=== PATIENT | female | born 1980 | race Caucasian/White ===

== ENCOUNTER 2021-01-29 15:50 | Emergency (ER) | payer OTHER ==
[2021-01-29 16:25] VITALS: TEMP 97.8; BMI 33.9
[2021-01-29 16:26] VITALS: BP 123/84; PULSE 63
[2021-01-29 16:33] LABS: BASO % 2.6 % (0-2.0); EOS % 2.6 % (0-4.5); HEMATOCRIT 41.5 % (32.4-45.2); HEMOGLOBIN 13.7 GM/dl (10.7-15.3); LYMPH % 23.3 % (8-40); MCH 31.9 pg (25.7-33.7); MCHC 32.9 g/dl (32.0-36.0); MEAN PLT VOLUME 8.1 fl (7.5-11.1); MONO % 8.1 % (3.8-10.2); NEUT % 63.4 % (42.8-82.8); PLATELET COUNT 262 10^3/uL (134-434); RBC 4.28 M/mm3 (3.60-5.2); RDW 13.6 % (11.6-15.6); WHITE BLOOD COUNT 9.9 K/mm3 (4.0-10.8)
[2021-01-29 16:43] LABS: BILIRUBIN,TOTAL 0.5 mg/dl (0.2-1); CALCIUM 8.9 mg/dl (8.5-10); CREATININE 0.8 mg/dl (0.55-1.3); TOT PROT 7.5 g/dl (6.4-8.2)
== END 2021-01-29 16:50 | disposition home or self-care (01) ==
LOC: FER 15:50
DX: M79.605 Pain in left leg (principal); I82.819 Embolism and thrombosis of superficial veins of unspecified lower extremity
CPT/HCPCS: 36415; 80053; 85025; 93971-TC; 99284-25